=== PATIENT | male | born 2000 | race Caucasian/White ===

== ENCOUNTER 2021-03-26 11:11 | Outpatient (REF) | payer BC, SELFPAY ==
--- NOTE | ~2021-03-26 | XR_ITS ---
EXAMINATION: XR ABDOMEN KUB CLINICAL INDICATION: Epigastric pain. COMPARISON: None TECHNIQUE: AP views of the abdomen. FINDINGS: The bowel gas pattern is normal with no evidence of ileus or obstruction. No unusual soft tissue calcifications are noted. The bones are unremarkable. XR/XR abdomen 1V IMPRESSION: Unremarkable examination.
== END 2021-03-26 11:12 | disposition home or self-care (01) ==
LOC: HO.XRAY 11:11
PROVIDERS: PCP Internal Medicine; Referring Provider Internal Medicine; Visit Provider Internal Medicine Gastroenterology
DX: R13.10 Dysphagia, unspecified (principal)
CPT/HCPCS: 74018

== ENCOUNTER 2021-04-03 06:36 | Day surgery (SDC) | payer BC, SELFPAY ==
--- NOTE | 2021-04-02 12:37 | P.CONAN_ITS ---
Documented by User: Eliana Ny NP 04/02/21 12:38 HPI - Anesthesia Eval Consult details Narrative: 20yo M for ?Upper Endoscopy and Colonoscopy [facility] Active Problems Active Problems: All Active Problems (Updated 03/26/21 @ 11:37 by Hugh Hogan MD) Epigastric abdominal pain (Acute) Past Medical History Medical History (Updated 04/02/21 @ 12:38 by Eliana Ny NP) Autism Surgical History Surgical History (Updated 04/02/21 @ 12:38 by Eliana Ny NP) No significant past surgical history Social History Social History Patient Tobacco Use Status: Never used Tobacco Use of substances other than those prescribed or required for medical reasons: No Are you DNR?: No Advance Directives: No Advance Directives Information Provided: Yes Meds Allergies Allergy/AdvReac Type Severity Reaction Status Date / Time No Known Allergies Allergy Verified 04/03/21 07:12 Exam Exam Date and Time: April 02, 2021 123 Assessment and Plan Assessment Anesthesia Assessment: Chart Reviewed Documented by User: Hemanth Wells MD 04/03/21 08:18 [facility] Past Medical History Medical History (Updated 04/02/21 @ 12:38 by Eliana Ny NP) Autism Family History Family history of problems with anesthesia: No Surgical History Surgical History (Updated 04/02/21 @ 12:38 by Eliana yN NP) No significant past surgical history History of Problems with Anesthesia: No Social History Social History Patient Tobacco Use Status: Never used Tobacco Use of substances other than those prescribed or required for medical reasons: No Are you DNR?: No Advance Directives: No Advance Directives Information Provided: Yes Meds Allergies Allergy/AdvReac Type Severity Reaction Status Date / Time No Known Allergies Allergy Verified 04/03/21 07:12 Exam Airway Mallampati Class: III TM Dist: >3cm Neck ROM: Full Loose/Missing/Broken Teeth: No Heart: [id number] Lungs: cta b/l Assessment and Plan Assessment Anesthesia Assessment: Anesthesia Plan Discussed and PAT Visit Final Anesthetic Review Family History of Problems with Anesthesia: No History of Problems with Anesthesia: No NPO: Yes ASA Class: II Final Preanesthetic Review: No Changes in Pt Med Stat, Meds/Allgs Chart Reviewed, Consent Obtained/Reviewed and Anes Risks/Benef Reviewed Patient Risk: Intermediate Procedure Risk: Low Assessment/Block/Sedation in SS: Assess/Block/Sedation-SS Anesthetic Plan Anesthetic Plan: MAC: and Agree w/ Assess. and Plan Disposition: Standard PACU
--- NOTE | 2021-04-03 07:03 | MHC.SHP ---
Pre-Procedural Eval Section A Date of Service: 04/03/21 The patient is an INPATIENT: No The History & Physical has been completed within 30 days and I have reviewed it.: Yes Section B Chief Complaint: epigastric pain Allergies: Allergies Allergy/AdvReac Type Severity Reaction Status Date / Time No Known Allergies Allergy Verified 04/02/21 12:38 Plan Diagnosis/Plan: Unchanged I have reviewed the history and physical and performed a pertinent physical examination on my patient. No changes have occurred unless specified.
[2021-04-03 07:17] VITALS: BP 135/84; PULSE 82; RESP 16; TEMP 36.8; O2SAT 100; BMI 24.3
[2021-04-03] MEDS: Lactated Ringers 1,000 ML 100 ML IVCONT (07:45)
--- NOTE | 2021-04-03 08:41 | PM.OP ---
Brief Operative Note Date of Service: 04/03/21 Pre-op diagnosis: abdo pain, altered bowel habit Post-op diagnosis: same Procedure: see op note Surgeon: Hugh Hogan MD Anesthesia: MAC Was an Instructor Business Education used for this Procedure?: No Estimated blood loss (mL): 0 Condition: stable Disposition: PACU
--- NOTE | 2021-04-03 08:41 | W.PM.OPN ---
Operative Note Operative Note Date of Service: 04/03/21 Narrative: Operative Information Procedure Description: EGD, Colonoscopy FLEXIBLE TRANSORAL UPPER GASTROINTESTINAL ENDOSCOPY AND COLONOSCOPY PROCEDURE NOTE UPPER ENDOSCOPY Consent: Indications for the procedure and potential complications of bleeding, perforation, reaction to medications and missed diagnosis were discussed with the patient and informed consent was obtained. Instrument: Olympus GIF H 190 J mid size upper endoscope Monitoring: Vital signs and clinical assessment, continuous EKG monitoring, Pulse oximetry, Carbon Dioxide monitoring and blood pressure monitoring were done throughout the procedure. Procedure: The patient was placed in the left lateral decubitis position and pre-procedure medications were administered and a bite block was placed. The endoscope was inserted into the mouth and advanced under direct vision to the third part of duodenum. A careful inspection was made as the upper endoscope was withdrawn including a retroflexed examination of the proximal stomach; Findings and interventions are described below. Findings: Larynx:normal Esophagus: GE junction at 37 cm, diaphragm hiatus at 37 cm, LA grade C erosive esophagitis for few CM, bx taken from GEJ and random esophagus Stomach: Scattered erythema and scarring. Biopsies were obtained. Grade 2 flap valve on retroflexed examination of the cardia. Duodenum: severe erosive duodenitis, bx taken from bulb and 2nd part of duodenum Intervention: Biopsies as noted above COLONOSCOPY Instrument: Olympus variable stiffness pediatric scope 190L Colonoscopy Monitoring: Vital signs and clinical assessment, continuous EKG monitoring, Pulse oximetry, Carbon Dioxide monitoring and blood pressure monitoring were done throughout the procedure. Colon withdrawal time was 6 minutes. Procedure: The patient was placed in the left lateral decubitis position and pre-procedure medications were administered. After a digital rectal examination of the ano-rectum, the video colonoscope was inserted into the rectum and advanced through the colon to the cecum/TI. The colonoscope was slowly withdrawn in a retrograde panoramic fashion and the colon mucosa was carefully examined including a retroflexed view of the rectum. Findings and interventions are described below. Procedure Difficulty:easy Findings: Terminal Ileum-normal, bx taken random colon bx taken Cecum:normal Ascending Colon: normal Transverse Colon -normal Descending Colon:normal Sigmoid Colon: normal Rectum: Retroflexion with small internal hemorrhoids, grade I Anorectum - normal Colon preparation: [place] Bowel Preparation Scale Right colon; 2 Transverse colon: 3 Left colon; 2 (0 = Unprepared colon segment with mucosa not seen due to solid stool that cannot be cleared. 1 = Portion of mucosa of the colon segment seen, but other areas of the colon segment not well seen due to staining, residual stool and/or opaque liquid. 2 = Minor amount of residual staining, small fragments of stool and/or opaque liquid, but mucosa of colon segment seen well. 3 = Entire mucosa of colon segment seen well with no residual staining, small fragments of stool or opaque liquid) Impression and Post Procedure Diagnosis: Endoscopy Findings: erosive esophagitis erosive duodenitis gastritis Colonoscopy Findings: internal hemorrhoids Plan: Await Pathology results Repeat Colonoscopy aged 45 or earlier if clinically indicated High fiber diet leaflet avoid straining at stool, epsom salts and sitz bath, anusol supps or cream high dose PPI for 3 months then titrate down, if h pylori pos then treat avoid nsaids Above findings were reviewed with the patient and relevant handouts were provided if indicated.
[2021-04-03 08:47] VITALS: BP 90/33; PULSE 84; RESP 16; TEMP 36.4; O2SAT 98
[2021-04-03 09:02] VITALS: BP 95/42; PULSE 68; RESP 16; O2SAT 100
[2021-04-03 09:17] VITALS: BP 111/61; PULSE 80; RESP 16; O2SAT 99
== END 2021-04-03 09:50 ==
LOC: HO.SSS 06:37
PROVIDERS: PCP Internal Medicine; Visit Provider Internal Medicine Gastroenterology
PROC: (CPT 45380; principal; 2021-04-03 08:00)
DX: R10.13 Epigastric pain (principal); R19.4 Change in bowel habit; K20.80 Other esophagitis without bleeding; K29.80 Duodenitis without bleeding; K64.0 First degree hemorrhoids
CPT/HCPCS: 45380; 43239; 88305; 88342; J3010